=== PATIENT | female | born 1945 | race African-American/Black ===

== ENCOUNTER 2019-01-03 17:34 | Inpatient (IN) ==
[2019-01-03] MEDS ORDERED: SODIUM CHLORIDE 0.9% 1,000 ML IV STA (19:53)
[2019-01-03 20:34] LABS: ABG Base Excess -3.4 MMOL/L (-2.5-2.5); ABG HCO3 21.5 MMOL/L (20-26); ABG Oxygen Saturation 94.3 % (95-100); ABG PCO2 30.7 MM HG (35-48); ABG PH 7.424 (7.35-7.45); ABG PO2 70.6 MM HG (80-95); Allen Test Positive; Pt O2 Delivery Device Room Air
[2019-01-03 21:01] LABS: Basophils % 0.2 % (0.0-0.8); Eosinophils # 0.1 10*3/uL (0.0-0.87); Eosinophils % 0.5 % (0.00-10.9); Hematocrit 34.3 VOL% (35.7-47.0); Hemoglobin 10.7 GM/DL (12.0-16.0); Immature Granulocytes % 0.2 %; Immature Granulocytes Absolute 0.02 #; Lymphocytes # 2.4 10*3/uL (1.4-4.0); Lymphocytes % 24.9 % (21.3-54.2); Mean Corpuscular HGB Conc 31.2 GM/DL (32-36); Mean Platelet Volume 10.6 FL (9.6-12.0); Monocytes % 8.1 % (1.7-12.7); Neutrophils % 66.1 % (38.7-73.9); Platelet Count 158 T/CUMM (130-400); Red Blood Count 3.73 MC/CUMM (3.8-5.5); Red Cell Distribution Width 13.9 % (9.3-17.3); White Blood Count 9.5 T/CUMM (4-12)
[2019-01-03 21:20] LABS: Alanine Aminotransferase 52 U/L (13-56); Albumin 3.1 G/DL (3.4-5.0); Alkaline Phosphatase 65 U/L (45-117); Aspartate Amino Transferase 144 U/L (0-37); Blood Urea Nitrogen 16 MG/DL (7-18); Calcium 9.1 MG/DL (8.5-10.1); Estimated Glom Filtration Rate 79 ML/MIN; Glucose 275 MG/DL (74-106); Osmolality,Calculated 280.1 MOS/KG (273-304)
[2019-01-03] MEDS ORDERED: NITROGLYCERIN 2% OINT 1 INCH/GM PACK TOP STA (21:28)
[2019-01-03] MEDS ORDERED: ASPIRIN 325 MG TABLET PO STA (21:28)
[2019-01-03] MEDS ORDERED: FUROSEMIDE 100 MG/10 ML VIAL IV STA (21:28)
[2019-01-03] MEDS ORDERED: ENOXAPARIN 30 MG/0.3 ML SYRINGE SUBCUT STA (21:45)
[2019-01-03] MEDS ORDERED: ACETAMINOPHEN 325 MG TABLET ONE (23:20)
[2019-01-03] MEDS ORDERED: ACETAMINOPHEN 325 MG TABLET PO ONE (23:23)
[2019-01-03] MEDS ORDERED: ENOXAPARIN 100 MG/ML SYRINGE SUBCUT ONE (23:24)
[2019-01-03] MEDS ORDERED: FUROSEMIDE 20 MG/2 ML VIAL IV ONE (23:33)
[2019-01-04] MEDS ORDERED: FUROSEMIDE 20 MG/2 ML VIAL IV ONE (00:07)
[2019-01-04] MEDS ORDERED: DEXTROSE 50% 25 GM/50 ML VIAL IV PRN (00:27)
[2019-01-04] MEDS ORDERED: GLUCAGON 1 MG VIAL IM PRN (00:27)
[2019-01-04] MEDS ORDERED: ACETAMINOPHEN 325 MG TABLET PO PRN (00:58)
[2019-01-04] MEDS ORDERED: ONDANSETRON 4 MG/2 ML VIAL IV PRN (00:58)
[2019-01-04] MEDS ORDERED: DOCUSATE SODIUM 100 MG CAPSULE PO PRN (00:58)
[2019-01-04] MEDS ORDERED: NITROGLYCERIN SL 0.4 MG TABLET SL PRN (00:58)
[2019-01-04 03:07] LABS: Basophils % 0.2 % (0.0-0.8); Eosinophils # 0.1 10*3/uL (0.0-0.87); Eosinophils % 0.7 % (0.00-10.9); Hematocrit 32.2 VOL% (35.7-47.0); Hemoglobin 10.5 GM/DL (12.0-16.0); Immature Granulocytes % 0.2 %; Immature Granulocytes Absolute 0.02 #; Lymphocytes # 3.3 10*3/uL (1.4-4.0); Lymphocytes % 35.9 % (21.3-54.2); Mean Corpuscular HGB Conc 32.6 GM/DL (32-36); Mean Corpuscular Volume 89.7 FL (87-102); Mean Platelet Volume 10.4 FL (9.6-12.0); Monocytes % 6.1 % (1.7-12.7); Neutrophils % 56.9 % (38.7-73.9); Platelet Count 148 T/CUMM (130-400); Red Blood Count 3.59 MC/CUMM (3.8-5.5); Red Cell Distribution Width 13.8 % (9.3-17.3); White Blood Count 9.1 T/CUMM (4-12)
[2019-01-04 03:37] LABS: Osmolality,Calculated 284.7 MOS/KG (273-304); Risk Ratio 2.77; Thyroid Stimulating Hormone 2.37 uIU/ml (0.358-3.74); VLDL CHOLESTEROL 23.6 MG/DL
[2019-01-04] MEDS: FUROSEMIDE 20 MG/2 ML VIAL IV SCH ×3 (08:49→16:33)
[2019-01-04] MEDS ORDERED: diphenhydrAMINE CAP 25 MG CAPSULE PO ONE (08:50)
[2019-01-04] MEDS ORDERED: DIAZEPAM 5 MG TABLET PO ONE (08:50)
[2019-01-04] MEDS: PANTOPRAZOLE 40 MG TABLET PO SCH (09:05)
[2019-01-04] MEDS: INSULIN REGULAR 100 UNIT/ML SUBCUT SCH ×4 (09:05→23:46)
[2019-01-04] MEDS: ASPIRIN EC 81 MG TABLET PO SCH (09:05)
[2019-01-04] MEDS: ROSUVASTATIN 20 MG TABLET PO SCH (09:05)
[2019-01-04 09:29] LABS: Amorphous Crystals,Urine Few /HPF (Few); Apearance,Urine CLOUDY (Clear); Bilirubin,Urine Negative (Negative); Blood, Urine Large mg/dL (Negative); Glucose,Urine (UA) >=500 mg/dL (Negative); Ketones,Urine 20 mg/dL (Negative); Mucus,Urine Occasional /LPF (Occasional); Nitrite,Urine Negative (Negative); Protein,Urine 30 MG/DL; RBC,Urine 1159 /HPF (0-4); Urine Specific Gravity 1.021 (1.001-1.035); Urine Urobilinogen < 2.0 EU/DL (0.2-1.0); WBC,Urine 8 /HPF (0-6)
[2019-01-04 09:30] LABS: Urine Color Amber (Yellow)
[2019-01-04] MEDS: carvediloL 3.125 MG TABLET PO SCH ×2 (10:41→23:46)
[2019-01-04] MEDS: ENOXAPARIN 100 MG/ML SYRINGE SUBCUT SCH ×2 (10:42→23:46)
[2019-01-04] MEDS: MAGNESIUM SULF RIDER 2 GM in PREMIX 1 EACH IV PRN (16:35)
[2019-01-04] MEDS ORDERED: FUROSEMIDE 40 MG/4 ML VIAL IV ONE (20:19)
[2019-01-04] MEDS ORDERED: ALBUTEROL/IPRATROPIUM 3 ML NEB RESP TX PRN (20:21)
[2019-01-04] MEDS ORDERED: ETOMIDATE 20 MG/10 ML VIAL IV ONE ×2 (20:31→20:36)
[2019-01-04] MEDS ORDERED: SUCCINYLCHOLINE 200 MG/10 ML VIAL ONE (20:32)
[2019-01-04] MEDS ORDERED: PROPOFOL 1,000 MG/100 ML BOTTLE IV ONE (20:44)
[2019-01-04 21:20] LABS: CKMB % 1.9 %
[2019-01-04 21:22] LABS: Troponin I 14.9 NG/ML (0.00-0.045)
[2019-01-04 21:44] LABS: ABG HCO3 20.9 MMOL/L (20-26); ABG Oxygen Saturation 85.2 % (95-100); ABG PCO2 43.8 MM HG (35-48); ABG PH 7.313 (7.35-7.45); ABG PO2 57.2 MM HG (80-95); Allen Test Positive; Pt O2 Delivery Device Ventilator
[2019-01-04] MEDS: PROPOFOL 1,000 MG/100 ML BOTTLE IV SCH (21:51)
[2019-01-04] MEDS ORDERED: fentaNYL INJ 1,250 MCG in SODIUM CHLORIDE 0.9% 225 ML IV PRN (21:52)
[2019-01-05 01:03] LABS: ABG Base Excess -2.7 MMOL/L (-2.5-2.5); ABG HCO3 22.1 MMOL/L (20-26); ABG Oxygen Saturation 93.1 % (95-100); ABG PCO2 41.9 MM HG (35-48); ABG PH 7.345 (7.35-7.45); ABG PO2 72.9 MM HG (80-95); ABG TCO2 20.5 MMOL/L (23-27); Allen Test Positive; Pt O2 Delivery Device Ventilator
[2019-01-05] MEDS: NOREPINEPHRINE 8 MG in SODIUM CHLORIDE 0.9% 242 ML IV PRN ×3 (04:00→22:21)
[2019-01-05 04:08] LABS: ABG Base Excess -1.3 MMOL/L (-2.5-2.5); ABG HCO3 24.7 MMOL/L (20-26); ABG Oxygen Saturation 92.7 % (95-100); ABG PCO2 46.9 MM HG (35-48); ABG PO2 72.6 MM HG (80-95); ABG TCO2 26.2 MMOL/L (23-27); Allen Test Positive; Pt O2 Delivery Device Ventilator
[2019-01-05 05:04] LABS: Basophils % 0.3 % (0.0-0.8); Eosinophils % 0.3 % (0.00-10.9); Hematocrit 35.7 VOL% (35.7-47.0); Hemoglobin 11.4 GM/DL (12.0-16.0); Immature Granulocytes % 0.5 %; Immature Granulocytes Absolute 0.05 #; Lymphocytes # 2.5 10*3/uL (1.4-4.0); Lymphocytes % 24.1 % (21.3-54.2); Mean Corpuscular HGB Conc 31.9 GM/DL (32-36); Mean Corpuscular Volume 90.2 FL (87-102); Mean Platelet Volume 10.7 FL (9.6-12.0); Monocytes % 5.2 % (1.7-12.7); Neutrophils % 69.6 % (38.7-73.9); Platelet Count 168 T/CUMM (130-400); Red Blood Count 3.96 MC/CUMM (3.8-5.5); Red Cell Distribution Width 13.8 % (9.3-17.3); White Blood Count 10.5 T/CUMM (4-12)
[2019-01-05 05:37] LABS: Calcium 8.9 MG/DL (8.5-10.1); Osmolality,Calculated 280.2 MOS/KG (273-304)
[2019-01-05 06:48] LABS: Apearance,Urine CLOUDY (Clear); Bacteria,Urine Occasional /HPF (Few); Bilirubin,Urine Negative (Negative); Blood, Urine Large mg/dL (Negative); Glucose,Urine (UA) >=500 mg/dL (Negative); Hyaline Casts,Urine 38 /LPF (0-3); Ketones,Urine Negative (Negative); Mucus,Urine Occasional /LPF (Occasional); Nitrite,Urine Negative (Negative); Protein,Urine 100 MG/DL; RBC,Urine 9 /HPF (0-4); Urine Color Yellow (Yellow); Urine Specific Gravity 1.009 (1.001-1.035); Urine Urobilinogen < 2.0 EU/DL (0.2-1.0)
[2019-01-05] MEDS: PROPOFOL 1,000 MG/100 ML BOTTLE IV SCH ×2 (07:16→15:25)
[2019-01-05] MEDS: MAGNESIUM SULF RIDER 2 GM in PREMIX 1 EACH IV PRN (08:03)
[2019-01-05] MEDS: ASPIRIN EC 81 MG TABLET PO SCH (08:11)
[2019-01-05] MEDS: PANTOPRAZOLE 40 MG TABLET PO SCH (08:11)
[2019-01-05] MEDS: INSULIN REGULAR 100 UNIT/ML SUBCUT SCH ×4 (08:11→20:50)
[2019-01-05] MEDS: ROSUVASTATIN 20 MG TABLET PO SCH (08:11)
[2019-01-05] MEDS: carvediloL 3.125 MG TABLET PO SCH ×2 (08:12→20:51)
[2019-01-05] MEDS: FUROSEMIDE 20 MG/2 ML VIAL IV SCH (08:53)
[2019-01-05] MEDS: SODIUM CHLORIDE 0.45% 1,000 ML IV SCH (10:54)
[2019-01-05] MEDS: ENOXAPARIN 100 MG/ML SYRINGE SUBCUT SCH ×2 (11:07→23:34)
[2019-01-05] MEDS ORDERED: NOREPINEPHRINE 4 MG/4 ML VIAL IV ONE (12:56)
[2019-01-05] MEDS ORDERED: FUROSEMIDE 40 MG/4 ML VIAL IV SCH (15:00)
[2019-01-05] MEDS: FUROSEMIDE 40 MG/4 ML VIAL IV SCH (15:24)
[2019-01-06] MEDS: PROPOFOL 1,000 MG/100 ML BOTTLE IV SCH ×5 (00:03→22:22)
[2019-01-06 03:24] LABS: Basophils % 0.2 % (0.0-0.8); Eosinophils % 0.4 % (0.00-10.9); Hematocrit 33.2 VOL% (35.7-47.0); Hemoglobin 10.9 GM/DL (12.0-16.0); Immature Granulocytes % 0.5 %; Immature Granulocytes Absolute 0.04 #; Lymphocytes % 23.6 % (21.3-54.2); Mean Corpuscular HGB Conc 32.8 GM/DL (32-36); Mean Platelet Volume 10.5 FL (9.6-12.0); Monocytes % 6.7 % (1.7-12.7); Neutrophils % 68.6 % (38.7-73.9); Platelet Count 176 T/CUMM (130-400); Red Blood Count 3.73 MC/CUMM (3.8-5.5); Red Cell Distribution Width 13.7 % (9.3-17.3); White Blood Count 8.4 T/CUMM (4-12)
[2019-01-06 03:56] LABS: Calcium 8.6 MG/DL (8.5-10.1); Osmolality,Calculated 281.7 MOS/KG (273-304)
[2019-01-06 04:07] LABS: Troponin I 28.3 NG/ML (0.00-0.045)
[2019-01-06] MEDS: SODIUM CHLORIDE 0.45% 1,000 ML IV SCH ×2 (04:10→23:43)
[2019-01-06 04:27] LABS: ABG Base Excess -0.3 MMOL/L (-2.5-2.5); ABG HCO3 24.2 MMOL/L (20-26); ABG Oxygen Saturation 99.5 % (95-100); ABG PCO2 32.5 MM HG (35-48); ABG PH 7.456 (7.35-7.45); ABG TCO2 20.4 MMOL/L (23-27); Allen Test Positive; Pt O2 Delivery Device Ventilator
[2019-01-06] MEDS: POTASSIUM CHLORIDE RIDER 10 MEQ in PREMIX 1 EACH IV PRN ×2 (05:38→06:33)
[2019-01-06] MEDS: INSULIN REGULAR 100 UNIT/ML SUBCUT SCH ×4 (08:04→20:25)
[2019-01-06] MEDS: FUROSEMIDE 40 MG/4 ML VIAL IV SCH ×2 (08:05→15:33)
[2019-01-06] MEDS: ASPIRIN EC 81 MG TABLET PO SCH (08:10)
[2019-01-06] MEDS: ROSUVASTATIN 20 MG TABLET PO SCH (08:10)
[2019-01-06] MEDS: carvediloL 3.125 MG TABLET PO SCH ×2 (08:10→20:16)
[2019-01-06] MEDS: LANSOPRAZOLE ODT 30 MG TABLET PER TUBE SCH (08:10)
[2019-01-06] MEDS: NOREPINEPHRINE 8 MG in SODIUM CHLORIDE 0.9% 242 ML IV PRN (09:06)
[2019-01-06] MEDS: MORPHINE 4 MG/1 ML VIAL IV PRN ×3 (09:36→18:25)
[2019-01-06] MEDS ORDERED: POTASSIUM CHLORIDE 20 MEQ/15 ML UDCUP PER TUBE ONE (10:20)
[2019-01-06] MEDS: INSULIN GLARGINE 100 UNIT/ML SUBCUT SCH (11:30)
[2019-01-06] MEDS: TAMOXIFEN 10 MG TABLET PO SCH (20:16)
[2019-01-06] MEDS ORDERED: ENOXAPARIN 100 MG/ML SYRINGE SUBCUT SCH (23:00)
[2019-01-07] MEDS: MORPHINE 4 MG/1 ML VIAL IV PRN ×4 (01:30→15:18)
[2019-01-07 03:27] LABS: ABG HCO3 26.2 MMOL/L (20-26); ABG Oxygen Saturation 99.4 % (95-100); ABG PCO2 31.5 MM HG (35-48); ABG PH 7.497 (7.35-7.45); Allen Test Positive; Pt O2 Delivery Device Ventilator
[2019-01-07] MEDS: PROPOFOL 1,000 MG/100 ML BOTTLE IV SCH ×5 (04:06→22:55)
[2019-01-07 05:11] LABS: Basophils % 0.2 % (0.0-0.8); Eosinophils # 0.1 10*3/uL (0.0-0.87); Eosinophils % 0.5 % (0.00-10.9); Hematocrit 31.7 VOL% (35.7-47.0); Immature Granulocytes % 0.5 %; Immature Granulocytes Absolute 0.05 #; Lymphocytes # 1.9 10*3/uL (1.4-4.0); Lymphocytes % 20.6 % (21.3-54.2); Mean Corpuscular HGB Conc 31.5 GM/DL (32-36); Mean Corpuscular Volume 90.3 FL (87-102); Mean Platelet Volume 10.9 FL (9.6-12.0); Monocytes % 6.7 % (1.7-12.7); Neutrophils % 71.5 % (38.7-73.9); Platelet Count 183 T/CUMM (130-400); Red Blood Count 3.51 MC/CUMM (3.8-5.5); Red Cell Distribution Width 13.9 % (9.3-17.3); White Blood Count 9.4 T/CUMM (4-12)
[2019-01-07 06:23] LABS: Blood Urea Nitrogen 17 MG/DL (7-18); Calcium 8.8 MG/DL (8.5-10.1); Estimated Glom Filtration Rate 81 ML/MIN; Glucose 174 MG/DL (74-106); Osmolality,Calculated 282.5 MOS/KG (273-304)
[2019-01-07] MEDS: INSULIN REGULAR 100 UNIT/ML SUBCUT SCH ×4 (08:01→20:20)
[2019-01-07] MEDS: FUROSEMIDE 40 MG/4 ML VIAL IV SCH ×2 (08:01→18:01)
[2019-01-07] MEDS: ROSUVASTATIN 20 MG TABLET PO SCH (09:46)
[2019-01-07] MEDS: carvediloL 3.125 MG TABLET PO SCH ×2 (09:46→20:20)
[2019-01-07] MEDS: ASPIRIN EC 81 MG TABLET PO SCH (09:46)
[2019-01-07] MEDS: TAMOXIFEN 10 MG TABLET PO SCH ×2 (09:46→20:21)
[2019-01-07] MEDS: INSULIN GLARGINE 100 UNIT/ML SUBCUT SCH (09:46)
[2019-01-07] MEDS: LANSOPRAZOLE ODT 30 MG TABLET PER TUBE SCH (09:47)
[2019-01-07] MEDS ORDERED: MAGNESIUM SULF RIDER 2 GM in PREMIX 1 EACH IV ONE (10:00)
[2019-01-07] MEDS ORDERED: INFLUENZA VIRUS VACCINE 0.5 ML SYRINGE IM ONE (11:10)
[2019-01-07] MEDS: POTASSIUM CHLORIDE 20 MEQ/15 ML UDCUP PER TUBE SCH ×2 (12:04→18:10)
[2019-01-07] MEDS: SODIUM CHLORIDE 0.45% 1,000 ML IV SCH ×2 (13:41→22:41)
[2019-01-07] MEDS ORDERED: diphenhydrAMINE CAP 25 MG CAPSULE PO ONE (15:00)
[2019-01-07] MEDS ORDERED: DIAZEPAM 5 MG TABLET PO ONE (15:00)
[2019-01-07] MEDS ORDERED: LIDOCAINE 1%/EPI INJ 20 ML VIAL ONE (15:15)
[2019-01-07] MEDS ORDERED: HEPARIN/NACL 0.9% 2 UNITS/ML 1,000 ML IV ONE (15:15)
[2019-01-07] MEDS ORDERED: MIDAZOLAM 2 MG/2 ML VIAL ONE (15:16)
[2019-01-07] MEDS ORDERED: fentaNYL 100 MCG/2 ML VIAL ONE (15:16)
[2019-01-07] MEDS ORDERED: ENOXAPARIN 30 MG/0.3 ML SYRINGE ONE (16:09)
[2019-01-07] MEDS ORDERED: POTASSIUM CHLORIDE 20 MEQ/15 ML UDCUP PER TUBE SCH (18:30)
[2019-01-07] MEDS: NOREPINEPHRINE 8 MG in SODIUM CHLORIDE 0.9% 242 ML IV PRN (19:01)
[2019-01-08] MEDS: SODIUM CHLORIDE 0.45% 1,000 ML IV SCH ×3 (01:36→11:27)
[2019-01-08 03:28] LABS: ABG HCO3 27.1 MMOL/L (20-26); ABG Oxygen Saturation 98.8 % (95-100); ABG PCO2 37.3 MM HG (35-48); ABG PH 7.463 (7.35-7.45); ABG TCO2 24.1 MMOL/L (23-27); Allen Test Positive; Pt O2 Delivery Device Ventilator
[2019-01-08 03:55] LABS: Basophils % 0.2 % (0.0-0.8); Eosinophils % 0.4 % (0.00-10.9); Hematocrit 31.4 VOL% (35.7-47.0); Hemoglobin 10.1 GM/DL (12.0-16.0); Immature Granulocytes % 0.4 %; Immature Granulocytes Absolute 0.04 #; Lymphocytes # 1.4 10*3/uL (1.4-4.0); Mean Corpuscular HGB Conc 32.2 GM/DL (32-36); Mean Corpuscular Volume 90.8 FL (87-102); Mean Platelet Volume 10.5 FL (9.6-12.0); Monocytes % 8.5 % (1.7-12.7); Neutrophils % 74.5 % (38.7-73.9); Platelet Count 189 T/CUMM (130-400); Red Blood Count 3.46 MC/CUMM (3.8-5.5); Red Cell Distribution Width 13.9 % (9.3-17.3); White Blood Count 8.9 T/CUMM (4-12)
[2019-01-08 04:16] LABS: Blood Urea Nitrogen 18 MG/DL (7-18); Calcium 8.1 MG/DL (8.5-10.1); Estimated Glom Filtration Rate 78 ML/MIN; Glucose 285 MG/DL (74-106); Osmolality,Calculated 281.1 MOS/KG (273-304)
[2019-01-08 04:47] LABS: Prealbumin 7.4 MG/DL (20-40)
[2019-01-08] MEDS: PROPOFOL 1,000 MG/100 ML BOTTLE IV SCH ×3 (05:47→20:51)
[2019-01-08] MEDS: MORPHINE 4 MG/1 ML VIAL IV PRN ×4 (08:02→18:28)
[2019-01-08] MEDS: INSULIN REGULAR 100 UNIT/ML SUBCUT SCH ×4 (08:05→21:34)
[2019-01-08] MEDS: FUROSEMIDE 40 MG/4 ML VIAL IV SCH ×2 (08:06→21:27)
[2019-01-08] MEDS: ROSUVASTATIN 20 MG TABLET PO SCH (09:00)
[2019-01-08] MEDS: CLOPIDOGREL 75 MG TABLET PO SCH (09:00)
[2019-01-08] MEDS: TAMOXIFEN 10 MG TABLET PO SCH ×2 (09:00→21:35)
[2019-01-08] MEDS: INSULIN GLARGINE 100 UNIT/ML SUBCUT SCH ×2 (09:00→21:33)
[2019-01-08] MEDS: ASPIRIN EC 81 MG TABLET PO SCH (09:00)
[2019-01-08] MEDS: LANSOPRAZOLE ODT 30 MG TABLET PER TUBE SCH (09:01)
[2019-01-08] MEDS: carvediloL 3.125 MG TABLET PO SCH ×2 (09:01→21:35)
[2019-01-08] MEDS ORDERED: RACEPINEPHRINE 0.5 ML NEB RESP TX PRN (13:18)
[2019-01-08] MEDS ORDERED: FUROSEMIDE 100 MG/10 ML VIAL ONE (13:29)
[2019-01-08] MEDS ORDERED: FUROSEMIDE 40 MG/4 ML VIAL IV ONE (14:24)
[2019-01-08] MEDS: methylPREDNISolone SOD SUC 40 MG/1 ML VIAL IV SCH ×2 (16:16→22:42)
[2019-01-08 16:49] LABS: ABG Base Excess 3.8 MMOL/L (-2.5-2.5); ABG HCO3 27.9 MMOL/L (20-26); ABG Oxygen Saturation 99.6 % (95-100); ABG PCO2 41.7 MM HG (35-48); ABG TCO2 25.4 MMOL/L (23-27); Allen Test Positive; Pt O2 Delivery Device Ventilator
[2019-01-08] MEDS: NOREPINEPHRINE 8 MG in SODIUM CHLORIDE 0.9% 242 ML IV PRN (23:31)
[2019-01-09 04:29] LABS: ABG Base Excess 5.6 MMOL/L (-2.5-2.5); ABG HCO3 29.5 MMOL/L (20-26); ABG Oxygen Saturation 99.7 % (95-100); ABG PCO2 44.9 MM HG (35-48); ABG TCO2 27.2 MMOL/L (23-27); Allen Test Positive; Pt O2 Delivery Device Ventilator
[2019-01-09 05:02] LABS: Basophils % 0.1 % (0.0-0.8); Hematocrit 34.2 VOL% (35.7-47.0); Hemoglobin 10.9 GM/DL (12.0-16.0); Immature Granulocytes % 0.5 %; Immature Granulocytes Absolute 0.06 #; Lymphocytes % 7.4 % (21.3-54.2); Mean Corpuscular HGB Conc 31.9 GM/DL (32-36); Mean Corpuscular Volume 89.8 FL (87-102); Mean Platelet Volume 10.4 FL (9.6-12.0); Monocytes % 3.5 % (1.7-12.7); Neutrophils % 88.5 % (38.7-73.9); Platelet Count 235 T/CUMM (130-400); Red Blood Count 3.81 MC/CUMM (3.8-5.5); Red Cell Distribution Width 13.6 % (9.3-17.3); White Blood Count 12.9 T/CUMM (4-12)
[2019-01-09] MEDS: PROPOFOL 1,000 MG/100 ML BOTTLE IV SCH ×4 (05:16→21:56)
[2019-01-09 05:19] LABS: Calcium 8.1 MG/DL (8.5-10.1); Osmolality,Calculated 296.1 MOS/KG (273-304)
[2019-01-09] MEDS: methylPREDNISolone SOD SUC 40 MG/1 ML VIAL IV SCH ×3 (06:14→23:49)
[2019-01-09] MEDS: INSULIN REGULAR 100 UNIT/ML SUBCUT SCH ×5 (08:01→23:52)
[2019-01-09] MEDS: FUROSEMIDE 40 MG/4 ML VIAL IV SCH ×2 (08:01→15:54)
[2019-01-09] MEDS: ASPIRIN EC 81 MG TABLET PO SCH (08:01)
[2019-01-09] MEDS: CLOPIDOGREL 75 MG TABLET PO SCH (08:02)
[2019-01-09] MEDS: TAMOXIFEN 10 MG TABLET PO SCH ×2 (08:02→21:56)
[2019-01-09] MEDS: LANSOPRAZOLE ODT 30 MG TABLET PER TUBE SCH (08:02)
[2019-01-09] MEDS: carvediloL 3.125 MG TABLET PO SCH ×2 (08:02→21:56)
[2019-01-09] MEDS: ROSUVASTATIN 20 MG TABLET PO SCH (08:02)
[2019-01-09] MEDS: PIPERACILLIN/TAZOBACTAM 3,375 MG in SODIUM CHLORIDE 0.9% 100 ML IV SCH ×2 (09:51→17:26)
[2019-01-09] MEDS: fentaNYL INJ 1,250 MCG in SODIUM CHLORIDE 0.9% 225 ML IV PRN (11:52)
[2019-01-09] MEDS: ENOXAPARIN 30 MG/0.3 ML SYRINGE SUBCUT SCH (15:54)
[2019-01-09] MEDS: INSULIN GLARGINE 100 UNIT/ML SUBCUT SCH (21:55)
[2019-01-10] MEDS: INSULIN REGULAR 100 UNIT/ML SUBCUT SCH ×6 (01:24→20:27)
[2019-01-10] MEDS: PIPERACILLIN/TAZOBACTAM 3,375 MG in SODIUM CHLORIDE 0.9% 100 ML IV SCH ×3 (01:36→17:29)
[2019-01-10] MEDS: PROPOFOL 1,000 MG/100 ML BOTTLE IV SCH ×3 (02:48→22:19)
[2019-01-10 04:01] LABS: ABG Base Excess 10.6 MMOL/L (-2.5-2.5); ABG HCO3 34.4 MMOL/L (20-26); ABG Oxygen Saturation 99.4 % (95-100); ABG PH 7.501 (7.35-7.45); ABG TCO2 31.4 MMOL/L (23-27); Pt O2 Delivery Device Ventilator
[2019-01-10 04:32] LABS: Basophils % 0.2 % (0.0-0.8); Hematocrit 33.6 VOL% (35.7-47.0); Hemoglobin 10.4 GM/DL (12.0-16.0); Immature Granulocytes Absolute 0.12 #; Lymphocytes # 1.1 10*3/uL (1.4-4.0); Lymphocytes % 9.2 % (21.3-54.2); Mean Corpuscular Volume 91.8 FL (87-102); Mean Platelet Volume 10.6 FL (9.6-12.0); Monocytes % 5.6 % (1.7-12.7); Platelet Count 271 T/CUMM (130-400); Red Blood Count 3.66 MC/CUMM (3.8-5.5); Red Cell Distribution Width 13.6 % (9.3-17.3); White Blood Count 12.1 T/CUMM (4-12)
[2019-01-10 05:10] LABS: Calcium 8.1 MG/DL (8.5-10.1); Osmolality,Calculated 299.4 MOS/KG (273-304)
[2019-01-10] MEDS: ENOXAPARIN 30 MG/0.3 ML SYRINGE SUBCUT SCH ×2 (05:12→16:21)
[2019-01-10] MEDS: methylPREDNISolone SOD SUC 40 MG/1 ML VIAL IV SCH ×2 (06:50→19:58)
[2019-01-10] MEDS: ROSUVASTATIN 20 MG TABLET PO SCH (08:18)
[2019-01-10] MEDS: CLOPIDOGREL 75 MG TABLET PO SCH (08:18)
[2019-01-10] MEDS: ASPIRIN EC 81 MG TABLET PO SCH (08:18)
[2019-01-10] MEDS: TAMOXIFEN 10 MG TABLET PO SCH ×2 (08:18→20:27)
[2019-01-10] MEDS: FUROSEMIDE 40 MG/4 ML VIAL IV SCH ×2 (08:18→16:21)
[2019-01-10] MEDS: carvediloL 3.125 MG TABLET PO SCH ×2 (08:19→20:27)
[2019-01-10] MEDS: LANSOPRAZOLE ODT 30 MG TABLET PER TUBE SCH (08:19)
[2019-01-10] MEDS ORDERED: DEXMEDETOMIDINE 200 MCG in SODIUM CHLORIDE 0.9% 48 ML IV PRN (09:30)
[2019-01-10] MEDS: fentaNYL INJ 1,250 MCG in SODIUM CHLORIDE 0.9% 225 ML IV PRN (09:36)
[2019-01-10] MEDS ORDERED: INSULIN GLARGINE 100 UNIT/ML SUBCUT SCH (10:24)
[2019-01-10] MEDS: NOREPINEPHRINE 8 MG in SODIUM CHLORIDE 0.9% 242 ML IV PRN (13:27)
[2019-01-11] MEDS: INSULIN REGULAR 100 UNIT/ML SUBCUT SCH ×6 (00:22→20:29)
[2019-01-11] MEDS: PIPERACILLIN/TAZOBACTAM 3,375 MG in SODIUM CHLORIDE 0.9% 100 ML IV SCH ×3 (01:28→17:00)
[2019-01-11 04:23] LABS: Basophils % 0.3 % (0.0-0.8); Eosinophils % 0.4 % (0.00-10.9); Hematocrit 34.5 VOL% (35.7-47.0); Hemoglobin 10.5 GM/DL (12.0-16.0); Immature Granulocytes % 1.2 %; Immature Granulocytes Absolute 0.13 #; Lymphocytes # 2.6 10*3/uL (1.4-4.0); Lymphocytes % 23.2 % (21.3-54.2); Mean Corpuscular HGB Conc 30.4 GM/DL (32-36); Mean Corpuscular Volume 93.5 FL (87-102); Mean Platelet Volume 10.6 FL (9.6-12.0); Monocytes % 7.6 % (1.7-12.7); Neutrophils % 67.3 % (38.7-73.9); Platelet Count 329 T/CUMM (130-400); Red Blood Count 3.69 MC/CUMM (3.8-5.5); White Blood Count 11.2 T/CUMM (4-12)
[2019-01-11 04:36] LABS: ABG Base Excess 11.2 MMOL/L (-2.5-2.5); ABG Oxygen Saturation 98.6 % (95-100); ABG PCO2 42.4 MM HG (35-48); ABG PH 7.534 (7.35-7.45); ABG PO2 133.5 MM HG (80-95); ABG TCO2 36.3 MMOL/L (23-27); Allen Test Positive; Pt O2 Delivery Device Ventilator
[2019-01-11 04:37] LABS: Calcium 8.5 MG/DL (8.5-10.1); Osmolality,Calculated 305.8 MOS/KG (273-304)
[2019-01-11] MEDS: ENOXAPARIN 30 MG/0.3 ML SYRINGE SUBCUT SCH ×2 (04:48→16:05)
[2019-01-11] MEDS: methylPREDNISolone SOD SUC 40 MG/1 ML VIAL IV SCH ×2 (06:11→18:15)
[2019-01-11] MEDS: fentaNYL INJ 1,250 MCG in SODIUM CHLORIDE 0.9% 225 ML IV PRN ×2 (06:34→21:44)
[2019-01-11] MEDS: PROPOFOL 1,000 MG/100 ML BOTTLE IV SCH ×3 (06:43→20:42)
[2019-01-11] MEDS: FUROSEMIDE 40 MG/4 ML VIAL IV SCH ×2 (07:55→16:05)
[2019-01-11] MEDS: TAMOXIFEN 10 MG TABLET PO SCH ×2 (09:15→20:29)
[2019-01-11] MEDS: ROSUVASTATIN 20 MG TABLET PO SCH (09:15)
[2019-01-11] MEDS: CLOPIDOGREL 75 MG TABLET PO SCH (09:15)
[2019-01-11] MEDS: ASPIRIN EC 81 MG TABLET PO SCH (09:15)
[2019-01-11] MEDS: LANSOPRAZOLE ODT 30 MG TABLET PER TUBE SCH (09:15)
[2019-01-11] MEDS: carvediloL 3.125 MG TABLET PO SCH ×2 (09:15→20:29)
[2019-01-11] MEDS ORDERED: SODIUM CHLORIDE 0.45% 1,000 ML IV SCH (11:00)
[2019-01-11] MEDS: POTASSIUM CHLORIDE RIDER 10 MEQ in PREMIX 1 EACH IV PRN ×3 (11:50→16:05)
[2019-01-11] MEDS: POTASSIUM CHLORIDE 20 MEQ/15 ML UDCUP PER TUBE SCH ×3 (13:05→21:21)
[2019-01-11] MEDS: INSULIN GLARGINE 100 UNIT/ML SUBCUT SCH (20:29)
[2019-01-12] MEDS: PIPERACILLIN/TAZOBACTAM 3,375 MG in SODIUM CHLORIDE 0.9% 100 ML IV SCH ×3 (02:22→16:30)
[2019-01-12] MEDS: INSULIN REGULAR 100 UNIT/ML SUBCUT SCH ×6 (02:22→21:44)
[2019-01-12 03:38] LABS: ABG Base Excess 10.5 MMOL/L (-2.5-2.5); ABG HCO3 34.7 MMOL/L (20-26); ABG Oxygen Saturation 98.3 % (95-100); ABG PCO2 44.9 MM HG (35-48); ABG PH 7.506 (7.35-7.45); ABG PO2 120.1 MM HG (80-95); ABG TCO2 36.1 MMOL/L (23-27); Allen Test Positive; Pt O2 Delivery Device Ventilator
[2019-01-12 05:01] LABS: Basophils % 0.2 % (0.0-0.8); Eosinophils # 0.1 10*3/uL (0.0-0.87); Eosinophils % 0.9 % (0.00-10.9); Hematocrit 32.9 VOL% (35.7-47.0); Immature Granulocytes Absolute 0.11 #; Lymphocytes # 2.6 10*3/uL (1.4-4.0); Lymphocytes % 24.5 % (21.3-54.2); Mean Corpuscular HGB Conc 30.4 GM/DL (32-36); Mean Corpuscular Volume 94.3 FL (87-102); Mean Platelet Volume 9.7 FL (9.6-12.0); Monocytes % 5.8 % (1.7-12.7); Neutrophils % 67.6 % (38.7-73.9); Platelet Count 322 T/CUMM (130-400); Red Blood Count 3.49 MC/CUMM (3.8-5.5); Red Cell Distribution Width 14.1 % (9.3-17.3); White Blood Count 10.5 T/CUMM (4-12)
[2019-01-12] MEDS: ENOXAPARIN 30 MG/0.3 ML SYRINGE SUBCUT SCH ×2 (05:29→16:30)
[2019-01-12 05:31] LABS: Calcium 8.7 MG/DL (8.5-10.1); Osmolality,Calculated 308.3 MOS/KG (273-304)
[2019-01-12] MEDS: PROPOFOL 1,000 MG/100 ML BOTTLE IV SCH ×2 (05:42→22:17)
[2019-01-12 06:09] LABS: Hypochromasia Slight; Lymphocytes 25 % (20-55); Platelet Estimate Adequate; Segmented Neutrophils 70 % (50-85); Total Cells Counted 100
[2019-01-12] MEDS: methylPREDNISolone SOD SUC 40 MG/1 ML VIAL IV SCH ×2 (07:00→18:05)
[2019-01-12] MEDS: POTASSIUM CHLORIDE RIDER 10 MEQ in PREMIX 1 EACH IV PRN (07:01)
[2019-01-12] MEDS: FUROSEMIDE 40 MG/4 ML VIAL IV SCH (08:20)
[2019-01-12] MEDS: LANSOPRAZOLE ODT 30 MG TABLET PER TUBE SCH (08:25)
[2019-01-12] MEDS: carvediloL 3.125 MG TABLET PO SCH ×2 (08:25→21:44)
[2019-01-12] MEDS: CLOPIDOGREL 75 MG TABLET PO SCH (08:25)
[2019-01-12] MEDS: ASPIRIN EC 81 MG TABLET PO SCH (08:25)
[2019-01-12] MEDS: TAMOXIFEN 10 MG TABLET PO SCH ×2 (08:25→21:44)
[2019-01-12] MEDS: ROSUVASTATIN 20 MG TABLET PO SCH (08:25)
[2019-01-12] MEDS: VANCOMYCIN INJ 1,500 MG in SODIUM CHLORIDE 0.9% 500 ML IV SCH ×2 (11:20→23:56)
[2019-01-12] MEDS: fentaNYL INJ 1,250 MCG in SODIUM CHLORIDE 0.9% 225 ML IV PRN (12:40)
[2019-01-12] MEDS: INSULIN GLARGINE 100 UNIT/ML SUBCUT SCH (21:44)
[2019-01-13] MEDS: INSULIN REGULAR 100 UNIT/ML SUBCUT SCH ×6 (00:39→19:59)
[2019-01-13] MEDS: PIPERACILLIN/TAZOBACTAM 3,375 MG in SODIUM CHLORIDE 0.9% 100 ML IV SCH ×3 (02:13→17:09)
[2019-01-13 03:48] LABS: ABG Base Excess 4.4 MMOL/L (-2.5-2.5); ABG HCO3 28.4 MMOL/L (20-26); ABG Oxygen Saturation 98.4 % (95-100); ABG PCO2 44.8 MM HG (35-48); ABG PH 7.425 (7.35-7.45); ABG TCO2 26.4 MMOL/L (23-27)
[2019-01-13 03:59] LABS: Basophils % 0.3 % (0.0-0.8); Eosinophils # 0.1 10*3/uL (0.0-0.87); Eosinophils % 0.8 % (0.00-10.9); Hemoglobin 9.8 GM/DL (12.0-16.0); Immature Granulocytes % 1.2 %; Immature Granulocytes Absolute 0.14 #; Lymphocytes # 2.6 10*3/uL (1.4-4.0); Lymphocytes % 21.7 % (21.3-54.2); Mean Corpuscular HGB Conc 29.7 GM/DL (32-36); Mean Corpuscular Volume 94.8 FL (87-102); Mean Platelet Volume 10.1 FL (9.6-12.0); Monocytes % 5.3 % (1.7-12.7); Neutrophils % 70.7 % (38.7-73.9); Platelet Count 345 T/CUMM (130-400); Red Blood Count 3.48 MC/CUMM (3.8-5.5); Red Cell Distribution Width 14.1 % (9.3-17.3)
[2019-01-13 04:12] LABS: Calcium 8.3 MG/DL (8.5-10.1); Osmolality,Calculated 303.8 MOS/KG (273-304)
[2019-01-13] MEDS: fentaNYL INJ 1,250 MCG in SODIUM CHLORIDE 0.9% 225 ML IV PRN ×2 (04:50→22:53)
[2019-01-13] MEDS: ENOXAPARIN 30 MG/0.3 ML SYRINGE SUBCUT SCH ×2 (05:31→15:36)
[2019-01-13] MEDS: PROPOFOL 1,000 MG/100 ML BOTTLE IV SCH ×2 (06:22→22:50)
[2019-01-13] MEDS: methylPREDNISolone SOD SUC 40 MG/1 ML VIAL IV SCH ×2 (06:29→19:07)
[2019-01-13] MEDS: ROSUVASTATIN 20 MG TABLET PO SCH (08:23)
[2019-01-13] MEDS: ASPIRIN EC 81 MG TABLET PO SCH (08:23)
[2019-01-13] MEDS: TAMOXIFEN 10 MG TABLET PO SCH ×2 (08:24→21:17)
[2019-01-13] MEDS: CLOPIDOGREL 75 MG TABLET PO SCH (08:25)
[2019-01-13] MEDS: LANSOPRAZOLE ODT 30 MG TABLET PER TUBE SCH (08:25)
[2019-01-13] MEDS: carvediloL 3.125 MG TABLET PO SCH ×2 (08:25→21:17)
[2019-01-13] MEDS: POTASSIUM CHLORIDE 20 MEQ/15 ML UDCUP PER TUBE SCH ×2 (09:06→11:32)
[2019-01-13] MEDS: VANCOMYCIN INJ 1,500 MG in SODIUM CHLORIDE 0.9% 500 ML IV SCH ×2 (11:17→23:09)
[2019-01-13] MEDS: FUROSEMIDE 40 MG/4 ML VIAL IV SCH (15:35)
[2019-01-13] MEDS: glipiZIDE 5 MG TABLET PER TUBE SCH (17:09)
[2019-01-13] MEDS ORDERED: INSULIN GLARGINE 100 UNIT/ML SUBCUT SCH (21:00)
[2019-01-14] MEDS: INSULIN REGULAR 100 UNIT/ML SUBCUT SCH ×6 (00:01→20:21)
[2019-01-14] MEDS: PIPERACILLIN/TAZOBACTAM 3,375 MG in SODIUM CHLORIDE 0.9% 100 ML IV SCH ×3 (02:17→17:26)
[2019-01-14] MEDS: ENOXAPARIN 30 MG/0.3 ML SYRINGE SUBCUT SCH ×2 (03:54→17:25)
[2019-01-14 04:56] LABS: Basophils % 0.2 % (0.0-0.8); Eosinophils # 0.1 10*3/uL (0.0-0.87); Eosinophils % 0.9 % (0.00-10.9); Immature Granulocytes Absolute 0.12 #; Lymphocytes # 2.3 10*3/uL (1.4-4.0); Lymphocytes % 19.4 % (21.3-54.2); Mean Corpuscular HGB Conc 28.6 GM/DL (32-36); Mean Corpuscular Volume 98.9 FL (87-102); Mean Platelet Volume 10.3 FL (9.6-12.0); Monocytes % 5.6 % (1.7-12.7); Neutrophils % 72.9 % (38.7-73.9); Platelet Count 317 T/CUMM (130-400); Red Blood Count 3.74 MC/CUMM (3.8-5.5); Red Cell Distribution Width 13.8 % (9.3-17.3)
[2019-01-14 05:00] LABS: ABG Base Excess 1.1 MMOL/L (-2.5-2.5); ABG HCO3 25.4 MMOL/L (20-26); ABG PCO2 42.9 MM HG (35-48); ABG PH 7.394 (7.35-7.45); ABG PO2 82.2 MM HG (80-95); ABG TCO2 23.7 MMOL/L (23-27); Allen Test Positive; Pt O2 Delivery Device Ventilator
[2019-01-14 05:29] LABS: Hemoglobin 10.7 GM/DL (12.0-16.0)
[2019-01-14 05:39] LABS: Hypochromasia Slight; Platelet Estimate Adequate
[2019-01-14] MEDS: methylPREDNISolone SOD SUC 40 MG/1 ML VIAL IV SCH ×2 (06:18→17:59)
[2019-01-14] MEDS ORDERED: SODIUM CHLORIDE 0.45% 1,000 ML IV SCH (07:30)
[2019-01-14] MEDS: carvediloL 3.125 MG TABLET PO SCH ×2 (09:40→21:58)
[2019-01-14] MEDS: CLOPIDOGREL 75 MG TABLET PO SCH (09:40)
[2019-01-14] MEDS: ROSUVASTATIN 20 MG TABLET PO SCH (09:40)
[2019-01-14] MEDS: glipiZIDE 5 MG TABLET PER TUBE SCH ×2 (09:41→17:55)
[2019-01-14] MEDS: ASPIRIN EC 81 MG TABLET PO SCH (09:41)
[2019-01-14] MEDS: TAMOXIFEN 10 MG TABLET PO SCH ×2 (09:41→21:59)
[2019-01-14] MEDS: LANSOPRAZOLE ODT 30 MG TABLET PER TUBE SCH (09:43)
[2019-01-14] MEDS: ALBUTEROL/IPRATROPIUM 3 ML NEB RESP TX SCH ×4 (10:07→22:50)
[2019-01-14] MEDS ORDERED: RACEPINEPHRINE 0.5 ML NEB RESP TX ONE (11:50)
[2019-01-14] MEDS: VANCOMYCIN INJ 1,500 MG in SODIUM CHLORIDE 0.9% 500 ML IV SCH ×2 (12:32→23:10)
[2019-01-14] MEDS ORDERED: FUROSEMIDE 40 MG/4 ML VIAL IV ONE (14:57)
[2019-01-14] MEDS ORDERED: FUROSEMIDE 40 MG/4 ML VIAL ONE (14:59)
[2019-01-14] MEDS ORDERED: INSULIN GLARGINE 100 UNIT/ML SUBCUT SCH (21:00)
[2019-01-14] MEDS: CLORAZEPATE 3.75 MG TABLET PO PRN (21:59)
[2019-01-15] MEDS: INSULIN REGULAR 100 UNIT/ML SUBCUT SCH ×7 (00:18→23:23)
[2019-01-15] MEDS: PIPERACILLIN/TAZOBACTAM 3,375 MG in SODIUM CHLORIDE 0.9% 100 ML IV SCH (01:42)
[2019-01-15] MEDS: ALBUTEROL/IPRATROPIUM 3 ML NEB RESP TX SCH ×6 (02:19→22:38)
[2019-01-15 03:38] LABS: Pt O2 Delivery Device BIPAP
[2019-01-15 03:41] LABS: ABG HCO3 26.2 MMOL/L (20-26); ABG Oxygen Saturation 97.7 % (95-100); ABG PH 7.451 (7.35-7.45); ABG PO2 95.1 MM HG (80-95); ABG TCO2 23.3 MMOL/L (23-27)
[2019-01-15] MEDS: ENOXAPARIN 30 MG/0.3 ML SYRINGE SUBCUT SCH ×2 (04:17→17:30)
[2019-01-15 04:28] LABS: Basophils % 0.2 % (0.0-0.8); Eosinophils # 0.1 10*3/uL (0.0-0.87); Eosinophils % 0.9 % (0.00-10.9); Hematocrit 32.5 VOL% (35.7-47.0); Hemoglobin 9.9 GM/DL (12.0-16.0); Immature Granulocytes % 0.7 %; Immature Granulocytes Absolute 0.09 #; Lymphocytes # 2.3 10*3/uL (1.4-4.0); Lymphocytes % 19.3 % (21.3-54.2); Mean Corpuscular HGB Conc 30.5 GM/DL (32-36); Mean Corpuscular Volume 92.9 FL (87-102); Monocytes % 5.8 % (1.7-12.7); Neutrophils % 73.1 % (38.7-73.9); Platelet Count 388 T/CUMM (130-400); Red Cell Distribution Width 13.6 % (9.3-17.3); White Blood Count 12.1 T/CUMM (4-12)
[2019-01-15 04:50] LABS: Calcium 8.6 MG/DL (8.5-10.1); Osmolality,Calculated 295.6 MOS/KG (273-304)
[2019-01-15] MEDS: POTASSIUM CHLORIDE RIDER 10 MEQ in PREMIX 1 EACH IV PRN ×4 (05:33→09:25)
[2019-01-15] MEDS: methylPREDNISolone SOD SUC 40 MG/1 ML VIAL IV SCH ×2 (06:18→18:35)
[2019-01-15] MEDS ORDERED: LEVOFLOXACIN INJ 500 MG in PREMIX 1 EACH IV SCH (08:00)
[2019-01-15] MEDS: glipiZIDE 5 MG TABLET PER TUBE SCH (08:21)
[2019-01-15] MEDS: LANSOPRAZOLE ODT 30 MG TABLET PER TUBE SCH (08:55)
[2019-01-15] MEDS: ROSUVASTATIN 20 MG TABLET PO SCH (08:55)
[2019-01-15] MEDS: CLOPIDOGREL 75 MG TABLET PO SCH (08:55)
[2019-01-15] MEDS: carvediloL 3.125 MG TABLET PO SCH ×2 (08:55→20:30)
[2019-01-15] MEDS: POTASSIUM CHLORIDE 20 MEQ TABLET PO SCH ×3 (08:55→17:40)
[2019-01-15] MEDS: TAMOXIFEN 10 MG TABLET PO SCH ×2 (08:55→20:30)
[2019-01-15] MEDS: ASPIRIN CHEW 81 MG TABLET PO SCH (08:55)
[2019-01-15] MEDS ORDERED: FUROSEMIDE 40 MG/4 ML VIAL IV ONE (09:10)
[2019-01-15] MEDS ORDERED: FLUCONAZOLE INJ 100 MG in IV BAG 1 EACH IV SCH (11:00)
[2019-01-15] MEDS: VANCOMYCIN INJ 1,500 MG in SODIUM CHLORIDE 0.9% 500 ML IV SCH ×2 (12:15→23:20)
[2019-01-15] MEDS: INSULIN GLARGINE 100 UNIT/ML SUBCUT SCH (20:31)
[2019-01-16] MEDS ORDERED: VANCOMYCIN INJ 1,500 MG in SODIUM CHLORIDE 0.9% 500 ML IV PRN (01:44)
[2019-01-16] MEDS: ALBUTEROL/IPRATROPIUM 3 ML NEB RESP TX SCH ×5 (02:30→20:17)
[2019-01-16] MEDS: INSULIN REGULAR 100 UNIT/ML SUBCUT SCH ×5 (04:19→20:47)
[2019-01-16] MEDS: ENOXAPARIN 30 MG/0.3 ML SYRINGE SUBCUT SCH ×2 (04:25→16:52)
[2019-01-16 04:45] LABS: Basophils % 0.3 % (0.0-0.8); Eosinophils # 0.1 10*3/uL (0.0-0.87); Eosinophils % 0.6 % (0.00-10.9); Hematocrit 33.5 VOL% (35.7-47.0); Hemoglobin 10.3 GM/DL (12.0-16.0); Immature Granulocytes % 0.7 %; Immature Granulocytes Absolute 0.07 #; Lymphocytes # 1.9 10*3/uL (1.4-4.0); Lymphocytes % 17.4 % (21.3-54.2); Mean Corpuscular HGB Conc 30.7 GM/DL (32-36); Monocytes % 6.8 % (1.7-12.7); Neutrophils % 74.2 % (38.7-73.9); Platelet Count 390 T/CUMM (130-400); Red Blood Count 3.64 MC/CUMM (3.8-5.5); Red Cell Distribution Width 13.7 % (9.3-17.3); White Blood Count 10.7 T/CUMM (4-12)
[2019-01-16 05:05] LABS: Calcium 8.3 MG/DL (8.5-10.1); Osmolality,Calculated 294.7 MOS/KG (273-304)
[2019-01-16] MEDS: methylPREDNISolone SOD SUC 40 MG/1 ML VIAL IV SCH ×2 (06:28→18:09)
[2019-01-16] MEDS: CLOPIDOGREL 75 MG TABLET PO SCH (08:40)
[2019-01-16] MEDS: TAMOXIFEN 10 MG TABLET PO SCH ×2 (08:40→20:47)
[2019-01-16] MEDS: LANSOPRAZOLE ODT 30 MG TABLET PER TUBE SCH (08:40)
[2019-01-16] MEDS: ASPIRIN CHEW 81 MG TABLET PO SCH (08:40)
[2019-01-16] MEDS: ROSUVASTATIN 20 MG TABLET PO SCH (08:40)
[2019-01-16] MEDS: carvediloL 3.125 MG TABLET PO SCH ×2 (08:40→20:47)
[2019-01-16] MEDS ORDERED: FUROSEMIDE 40 MG TABLET PO SCH (09:00)
[2019-01-16] MEDS: FLUCONAZOLE 40 MG/ML 35 ML/BOTTLE PO SCH (09:46)
[2019-01-16] MEDS: FUROSEMIDE 40 MG TABLET PO SCH (17:17)
[2019-01-16] MEDS: CLORAZEPATE 3.75 MG TABLET PO PRN (20:47)
[2019-01-16] MEDS: INSULIN GLARGINE 100 UNIT/ML SUBCUT SCH (20:47)
[2019-01-16] MEDS: VANCOMYCIN INJ 1,500 MG in SODIUM CHLORIDE 0.9% 500 ML IV SCH (20:49)
[2019-01-17] MEDS: ALBUTEROL/IPRATROPIUM 3 ML NEB RESP TX SCH ×4 (00:52→16:01)
[2019-01-17] MEDS: ENOXAPARIN 30 MG/0.3 ML SYRINGE SUBCUT SCH ×2 (05:02→16:35)
[2019-01-17] MEDS: methylPREDNISolone SOD SUC 40 MG/1 ML VIAL IV SCH (06:01)
[2019-01-17 07:05] LABS: Basophils % 0.2 % (0.0-0.8); Eosinophils % 0.2 % (0.00-10.9); Hematocrit 34.7 VOL% (35.7-47.0); Hemoglobin 10.7 GM/DL (12.0-16.0); Immature Granulocytes % 0.7 %; Immature Granulocytes Absolute 0.09 #; Lymphocytes # 2.4 10*3/uL (1.4-4.0); Lymphocytes % 18.2 % (21.3-54.2); Mean Corpuscular HGB Conc 30.8 GM/DL (32-36); Mean Corpuscular Volume 91.1 FL (87-102); Neutrophils % 75.7 % (38.7-73.9); Platelet Count 395 T/CUMM (130-400); Red Blood Count 3.81 MC/CUMM (3.8-5.5); Red Cell Distribution Width 13.6 % (9.3-17.3); White Blood Count 13.2 T/CUMM (4-12)
[2019-01-17 07:35] LABS: Calcium 8.5 MG/DL (8.5-10.1); Osmolality,Calculated 289.3 MOS/KG (273-304)
[2019-01-17] MEDS: ROSUVASTATIN 20 MG TABLET PO SCH (08:57)
[2019-01-17] MEDS: FUROSEMIDE 40 MG TABLET PO SCH ×2 (08:57→16:35)
[2019-01-17] MEDS: carvediloL 3.125 MG TABLET PO SCH ×2 (08:57→21:40)
[2019-01-17] MEDS: LANSOPRAZOLE ODT 30 MG TABLET PER TUBE SCH (08:57)
[2019-01-17] MEDS: ASPIRIN CHEW 81 MG TABLET PO SCH (08:57)
[2019-01-17] MEDS: CLOPIDOGREL 75 MG TABLET PO SCH (08:58)
[2019-01-17] MEDS: INSULIN REGULAR 100 UNIT/ML SUBCUT SCH ×4 (09:03→21:40)
[2019-01-17] MEDS: FLUCONAZOLE 40 MG/ML 35 ML/BOTTLE PO SCH (09:04)
[2019-01-17] MEDS: TAMOXIFEN 10 MG TABLET PO SCH ×2 (09:10→21:40)
[2019-01-17] MEDS: VANCOMYCIN INJ 1,500 MG in SODIUM CHLORIDE 0.9% 500 ML IV SCH (14:26)
[2019-01-17] MEDS: INSULIN GLARGINE 100 UNIT/ML SUBCUT SCH (21:41)
[2019-01-18 05:03] LABS: Basophils # 0.1 10*3/uL (0.0-0.2); Basophils % 0.4 % (0.0-0.8); Eosinophils # 0.1 10*3/uL (0.0-0.87); Hematocrit 34.4 VOL% (35.7-47.0); Hemoglobin 10.9 GM/DL (12.0-16.0); Immature Granulocytes % 0.6 %; Immature Granulocytes Absolute 0.07 #; Lymphocytes # 3.5 10*3/uL (1.4-4.0); Lymphocytes % 30.4 % (21.3-54.2); Mean Corpuscular HGB Conc 31.7 GM/DL (32-36); Mean Corpuscular Volume 90.1 FL (87-102); Mean Platelet Volume 10.1 FL (9.6-12.0); Monocytes % 6.5 % (1.7-12.7); Neutrophils % 61.1 % (38.7-73.9); Platelet Count 405 T/CUMM (130-400); Red Blood Count 3.82 MC/CUMM (3.8-5.5); Red Cell Distribution Width 13.8 % (9.3-17.3); White Blood Count 11.4 T/CUMM (4-12)
[2019-01-18] MEDS: ENOXAPARIN 30 MG/0.3 ML SYRINGE SUBCUT SCH ×2 (05:06→17:11)
[2019-01-18 05:19] LABS: Calcium 8.9 MG/DL (8.5-10.1); Osmolality,Calculated 288.6 MOS/KG (273-304)
[2019-01-18] MEDS: VANCOMYCIN INJ 1,500 MG in SODIUM CHLORIDE 0.9% 500 ML IV SCH (09:39)
[2019-01-18] MEDS: ROSUVASTATIN 20 MG TABLET PO SCH (09:40)
[2019-01-18] MEDS: ASPIRIN CHEW 81 MG TABLET PO SCH (09:41)
[2019-01-18] MEDS: TAMOXIFEN 10 MG TABLET PO SCH ×2 (09:41→21:11)
[2019-01-18] MEDS: FUROSEMIDE 40 MG TABLET PO SCH ×2 (09:41→17:10)
[2019-01-18] MEDS: carvediloL 3.125 MG TABLET PO SCH ×2 (09:41→21:11)
[2019-01-18] MEDS: LANSOPRAZOLE ODT 30 MG TABLET PER TUBE SCH (09:42)
[2019-01-18] MEDS: CLOPIDOGREL 75 MG TABLET PO SCH (09:42)
[2019-01-18] MEDS: INSULIN REGULAR 100 UNIT/ML SUBCUT SCH ×4 (09:43→21:19)
[2019-01-18] MEDS: FLUCONAZOLE 40 MG/ML 35 ML/BOTTLE PO SCH (17:11)
[2019-01-18] MEDS: INSULIN GLARGINE 100 UNIT/ML SUBCUT SCH (21:19)
[2019-01-19] MEDS: ENOXAPARIN 30 MG/0.3 ML SYRINGE SUBCUT SCH (05:13)
[2019-01-19] MEDS: VANCOMYCIN INJ 1,500 MG in SODIUM CHLORIDE 0.9% 500 ML IV SCH (05:14)
[2019-01-19] MEDS: ROSUVASTATIN 20 MG TABLET PO SCH (08:34)
[2019-01-19] MEDS: carvediloL 3.125 MG TABLET PO SCH (08:35)
[2019-01-19] MEDS: LANSOPRAZOLE ODT 30 MG TABLET PER TUBE SCH (08:36)
[2019-01-19] MEDS: ASPIRIN CHEW 81 MG TABLET PO SCH (08:37)
[2019-01-19] MEDS: TAMOXIFEN 10 MG TABLET PO SCH (08:37)
[2019-01-19] MEDS: FUROSEMIDE 40 MG TABLET PO SCH (08:37)
[2019-01-19] MEDS: INSULIN REGULAR 100 UNIT/ML SUBCUT SCH ×3 (08:45→12:14)
[2019-01-19] MEDS: CLOPIDOGREL 75 MG TABLET PO SCH (08:47)
[2019-01-19 12:05] VITALS: BP 114/54
== END 2019-01-19 14:48 | disposition swing bed (61) | DRG 280 ==
LOC: N.ED 17:34 → SUATTDRO 23:13 → N.EDINP 23:13 → N.TELEN 23:31 → N.ICU 01-04 20:40 → N.TELEN 01-16 12:51
PROVIDERS: ADMIT Internal Medicine; ATTEND Internal Medicine
PROC: CLCCHCL (ICD-10-PCS; 2019-01-07 16:15)